=== PATIENT | female | born 1980 | race Caucasian/White ===

== ENCOUNTER → 2016-07-08 | Outpatient (CLI) | payer BC ==
--- NOTE | 2016-07-08 18:30 | US ---
July 08, [address] Lang, Thank you very much for allowing us to see your patient Priscilla Coleman. As you know, she is a 35-ye ar-old, 3, para 1011 who was asked to see us for aneuploidy screening and consult. Her history is significant for advanced maternal age (36 at EDC). She reports that she has had NIPT that was reassuring. LMP: 04/11/2016 Age by Dates: 12 weeks 3 days EDC: 01/17/2017 by LMP ULTRASOUND [place] rump length: 58 mm Gestational age by crown rump length: 12 weeks 1 day(s) TEA by crown rump length: 01/19/2017 Consistent with established dating: Yes Nuchal translucency: 1.7 mm, which is reassuring for this gestational age Nasal bone: Present heart rate: 174 bpm Placenta: posterior Right ovary visualized and appears normal. It measures 2.1 x 1.7 x 2.0 cm Left ovary not visualized. No overt structural anomalies were identified for this early ultrasound, but please note that a full anatomic evaluation has not occurred at this early gestational age. IMPRESSION: 1. Intrauterine at 12 weeks 3 days, EDC of 01/17/2017. 2. The limited anatomy appears normal. 3. The two Down syndrome markers are normal and she reports having had reassuring NIPT screening. We discussed the sensitivity and predictive values of this screening test. The only way to directly ev aluate the chromosomes is by invasive procedure such as CVS or amniocentesis. RECOMMENDATIONS: -serum AFP screening after 16 weeks to assess neural tube defect risk -detailed anatomy ultrasound at ~20 weeks -Priscilla declines invasive diagnostic testing at this time Thank you for allowing us the opportunity to evaluate your patient. Should you have any further ques tions or concerns please do not hesitate to contact me. Approximately 15 minutes were spent with the patient, of which 10 minutes were spent in [id number] consultation discussing screening and diagnosis. Neena Cagle M.D., Ph.D. Counsel Department of Obstetrics and Gynecology [facility]
--- NOTE | 2016-07-08 19:17 | US ---
First Trimester Obstetrical Sonography CLINICAL HISTORY: 35-year-old female presenting for early aneuploidy screening. TECHNIQUE: A curvilinear 5 MHz transducer was used to sonographically evaluate the fetus and the plac enta. M-mode Doppler is used. Dr. Neena Cagle is present. COMPARISON STUDY: None available. LMP: April 12, 2016, indicating an age of 12 weeks 3 days, and an estimated date of delivery of Dec. FINDINGS: There is a single viable intrauterine gestation with a crown-rump length of 58 mm, co rresponding to an age of 12 weeks 3 days. The nuchal translucency is normal, measuring 1.7 mm, and th e nasal bone is present. The heart rate is 174 bpm. The placenta is forming posteriorly, with n o focal fibroid or subchorionic hemorrhage. The maternal right ovary measures 2.0 x 1.7 x 2.1 cm, and the maternal left ovary is not identified. IMPRESSION: There is a single viable intrauterine gestation with two normal early screening markers. The patient should return at 20 weeks gestation for more complete anatomic screening and repeat biome try. Please also refer to Dr. Cagle' separate assessments and specific recommendations for follow-up.
== END ==
LOC: FIMAGING 12:48
PROVIDERS: ATTEND Obstetrics & Gynecology
DX: Z34.81 Encounter for supervision of other normal pregnancy, first trimester (principal); Z3A.12 12 weeks gestation of pregnancy

== ENCOUNTER 2017-01-18 02:55 | Inpatient (IN) | payer BC ==
[2017-01-18] MEDS ORDERED: TERBUTALINE SULFATE 1 MG/ML VIAL IV PRN (03:55)
[2017-01-18] MEDS ORDERED: EPSOM SALT 454 GM TP PRN (03:55)
[2017-01-18] MEDS ORDERED: OXYTOCIN/RINGERS LACTATE 1,000 ML IV PRN (03:55)
[2017-01-18] MEDS ORDERED: OLIVE OIL 118 ML BTL MISC PRN (03:55)
[2017-01-18] MEDS ORDERED: LIDOCAINE 1% 2 ML INJ ONE (03:58)
--- NOTE | 2017-01-18 04:25 | OBPROG ---
OBG Labor Progress Note Assessment/Plan: Assessment:contractions q 5-7 minutes feeling pain with the contractions breathing through exam 50/-2 cephalic rom clear fluid 199901/17/2017 gbs negative desires epidural for pain relief Plan:expectant management of labor 01/18/17 04:23 Subjective: Feeling pain with the contractions q5-7 minutes - SVE Dilation (cm): 2 Effacement (%): 50 Station: -2 - Physical Exam General Appearance: WD/WN, alert, no apparent distress Respiratory: chest non-tender, lungs clear, normal breath sounds Cardiac/Chest: regular rate, rhythm Abdomen: normal bowel sounds Extremities: normal range of motion, non-tender, normal inspection, Anali's sign (negative bilaterally) DTR- Lower Extremities: Knee (R): 1+, Knee (L): 1+ (no clonus bilaterally) Skin: normal color, warm/dry Neuro/Psych: no motor/sensory deficits, alert, normal mood/affect, oriented x 3 Oxytocin Orders Assessment - Pre-Induction/Augmentation Assessment Gestational Age: 40 week(s) and 1 day(s) ICD10 Worksheet Patient Problems: Problems Problem Status Onset Normal labor Acute Delivery normal Acute
[2017-01-18 04:36] LABS: % IMMATURE GRANULYOCYTES 0.4 % (0.0-1.1); ABSOLUTE IMMATURE GRANULOCYTES 0.06 10^3/uL (0.00-0.10); ADD DIFF? NO; ADD MORPH? NO; ADD SCAN? NO; ATYPICAL LYMPHOCYTE FLAG 0 (0-99); FRAGMENT RBC FLAG 0 (0-99); HEMATOCRIT 44.4 % (38.0-47.0); HEMOGLOBIN 15.3 g/dL (12.6-16.3); LEFT SHIFT FLG 0 (0-99); LIPEMIA HEMOLYSIS FLAG 90 (0-99); MEAN CELL HEMOGLOBIN 30.2 pg (27.9-34.1); MEAN CELL HEMOGLOBIN CONCENTR. 34.5 g/dL (32.4-36.7); MEAN CELL VOLUME 87.7 fL (81.5-99.8); MEAN PLATELET VOLUME 12.1 fL (8.7-11.7); PLATELET CLUMPS FLAG 10 (0-99); PLATELET COUNT 176 10^3/uL (150-400); RED BLOOD CELL COUNT 5.06 10^6/uL (4.18-5.33); RED CELL DISTRIBUTION WIDTH 13.8 % (11.5-15.2)
[2017-01-18] MEDS: LR 1,000 ML IV PRN ×2 (05:04→07:03)
--- NOTE | 2017-01-18 05:12 | OBPROG ---
OBG Labor Progress Note Assessment/Plan: Assessment:contractions q 5-7 minutes feeling pain with the contractions breathing through exam /-1 cephalic rom clear fluid 199901/17/2017 gbs negative desires epidural for pain relief return to bed after ambulating questioning category 2 tracing and possible episodic or periodic variables with contractions Plan: decrease oral intake, iv fluids , position changes in bed 01/18/17 04:23 01/18/17 05:09 Subjective: Feeling greater pain with the contractions Objective: 01/18/17 04:10 Patient ABO/Rh O NEGATIVE 01/18/17 04:10 - SVE Dilation (cm): 3 Effacement (%): 100 Station: -1 Oxytocin Orders Assessment - Pre-Induction/Augmentation Assessment Gestational Age: 40 week(s) and 1 day(s) ICD10 Worksheet Patient Problems: Problems Problem Status Onset Delivery normal Acute Normal labor Acute
--- NOTE | 2017-01-18 05:15 | GHP ---
[f rep st] HISTORY AND PHYSICAL DATE OF ADMISSION: 01/18/2017 Patient is a 36-year-old 3, para 1, with an EDC of 01/17/2017 with a gestational age of 40-1/7 weeks, who comes into Labor and Delivery at 2 a.m. with complaint of rupture of membranes at 8 o'clock on 01/17/2017, and at that time no contractions and at 1:30 a.m. stating that contractions were 5-7 minutes apart. On admit to Labor and Delivery, contractions are 5-7 minutes apart. Patient is breathing through them. Exam was / -2, cephalic posterior, soft per nurse exam. Patient has been routinely seen since early on in with [facility]. She came to the office at 9 weeks and 1 day for 1st appointment. She had an early ultrasound at 8 weeks that confirmed her due date. MEDICAL HISTORY: Has a history of anxiety and depression in high school, UTIs 02/2015; previous smoking history, discontinued in 2004. Patient is Rh negative. SURGICAL HISTORY: [place] teeth extraction in 2005, tooth implant in 2000, broken arm left x1; broken legs, right x3. GYNECOLOGICAL HISTORY: Previous OCP use. Abnormal Pap smear at age 19, negative since. PREVIOUS HISTORY: In 07/2013, a female who weighed 8 pounds 8 ounces , 39 weeks, 24 hours of labor, vaginal delivery with an epidural; patient pushed for 3 hours. In 06/2015, an SAB, no D and C needed, and then present . SOCIAL HISTORY: Patient is , 1 child at home. Previous smoker. No drug use history. Patient adopted no known family history ALLERGIES: Patient is not allergic to any medications. Has multiple food allergies MEDICATIONS: vitamins with DHA daily LABS: Patient is O negative. Antibody negative. RPR is nonreactive. Rubella is immune. Hepatitis is negative. HIV is negative. Trio screen negative. [employer] panel in 2012 was negative. AFP was negative. UA was negative. Pap: Gonorrhea and chlamydia are negative. Verifi was negative. 1- hour GTT was within normal limits. Patient is GBS negative. PHYSICAL EXAMINATION: GENERAL: Patient is awake, alert, oriented x3. LUNGS: Clear bilaterally. ABDOMEN: Bowel sounds are positive in all 4 quadrants. EXTREMITIES: DTRs are 1+ bilaterally with no clonus. Homans sign is negative bilaterally. PLAN OF CARE: 1. GBS negative. 2. Spontaneous rupture membranes at 8 p.m. on 01/17/2017. Minimal exams. Will wait 12 hours for change in cervix. 3. Epidural at patient's request. 4. continuous monitoring, low heart baseline. Occasional variable decelerations, lates 5. IV fluids /[id number]/MODL MTDD
[2017-01-18] MEDS ORDERED: D5W LR 1,000 ML IV ONE (05:23)
[2017-01-18] MEDS ORDERED: fentaNYL 2MCG/ML/BUP 0.1% RTU 100 ML BAG EP ONE (06:08)
[2017-01-18] MEDS ORDERED: BUPIVACAINE 0.25% 30 ML SDV ONE (06:09)
[2017-01-18] MEDS ORDERED: PHENYLEPHRINE HCL 100 MCG/ML SYR ONE (06:09)
[2017-01-18] MEDS ORDERED: fentaNYL 100 MCG/2 ML INJ ONE (06:10)
[2017-01-18] MEDS ORDERED: OLIVE OIL 118 ML BTL ONE (07:07)
[2017-01-18] MEDS ORDERED: LIDOCAINE 1% 300 MG/30 ML SDV ONE (07:07)
[2017-01-18] MEDS ORDERED: OXYTOCIN 10 UNIT/ML VIAL ONE (07:08)
[2017-01-18] MEDS ORDERED: TERBUTALINE SULFATE 1 MG/ML VIAL ONE (07:08)
[2017-01-18] MEDS ORDERED: MISOPROSTOL 200 MCG TAB ONE (07:08)
--- NOTE | 2017-01-18 07:08 | OBPROG ---
OBG Labor Progress Note Assessment/Plan: Assessment:contractions irregular in timing after the epidural feeling better after epidural placement denies pain exam 4/100/-1 cephalic continued clear fluid vaginally gbs negative cat 1 fhr now after 1l of fluid through iv Plan: epidural for pain relief, pitocin per protocol contractions irregular after the epidural 01/18/17 04:23 01/18/17 05:09 01/18/17 07:05 Subjective: Feeling better after the epidural Objective: 01/18/17 04:10 Patient ABO/Rh O NEGATIVE 01/18/17 04:10 - SVE Dilation (cm): 4 Effacement (%): 100 Station: -1 Oxytocin Orders Assessment - Pre-Induction/Augmentation Assessment Gestational Age: 40 week(s) and 1 day(s) ICD10 Worksheet Patient Problems: Problems Problem Status Onset Delivery normal Acute Normal labor Acute
[2017-01-18] MEDS ORDERED: OXYTOCIN/RINGERS LACTATE 500 ML IV SCH (07:30)
--- NOTE | 2017-01-18 07:33 | PREANESOB ---
Obstetric Pre-Anesthesia Info - General Info Proposed Procedure: Labor and delivery. : 3 Para: 1 WBD: 40 - Info Status: Full Term Monitors: External FHR Baseline (bpm): 125 FHR Pattern: Reassuring - Labor Status Cervical Dilation per last OB SVE: 3 Station per last OB SVE: -1 Indications for Labor Analgesia: Pain Control Labor Epidural: Proposed Anesthesia ROS: Prior epidural for labor and delivery. Prior oral surgery and tonsillectomy. Allergies/Adverse Reactions: Allergy/AdvReac Type Severity Reaction Status Date / Time No Known Allergies Allergy Verified 01/18/17 03:08 Home Medications: Medication Instructions Recorded Docosahexanoic Acid [Dha] 100 mg PO 01/18/17 Folic Acid 01/18/17 GARLIC [G[facility]LIC [facility]] 300 mg PO 01/18/17 Vit27&Calcium/Iron/FA 1 each PO DAILY 01/18/17 [ Rx 1 Tablet (RX)] Visit Medications: Generic Name Dose Route Start Last Admin Trade Name Freq PRN Reason Stop Dose Admin Lactated Ringer's 1,000 mls @ 0 mls/hr 01/18/17 03:55 01/18/17 07:03 Lr IV 07/17/17 03:54 1,000 mls PRN PRN Administration SEE PROTOCOL CONDITIONS Protocol Per Protocol Oxytocin/Lactated Ringer's 1,000 mls @ 150 mls/hr 01/18/17 03:55 Pitocin 20 Units/Lr (Premix) IV PRN PRN Post- bleeding Oxytocin/Lactated Ringer's 500 mls @ 0 mls/hr 01/18/17 07:30 Pitocin 30 Units/Lr (Premix) IV 07/17/17 07:29 CONT ELOISA Protocol Per Protocol Ibuprofen 600 mg 01/18/17 03:55 Motrin PO 07/17/17 03:54 Q6HRS PRN post , inflammation Magnesium Sulfate 454 gm 01/18/17 03:55 Epsom Salt TP 07/17/17 03:54 Q1H PRN perineal discomfort Olivet Oil 118 ml 01/18/17 03:55 Sweet Oil MISC 07/17/17 03:54 ONCE PRN preneal massage Terbutaline Sulfate 0.25 mg 01/18/17 03:55 Brethine IV 07/17/17 03:54 ONCE PRN Tachysystole Discontinued Medications Generic Name Dose Route Start Last Admin Trade Name Chaya PRN Reason Stop Dose Admin Bupivacaine HCl Confirm 01/18/17 06:09 Sensorcaine 0.25% Sdv Administered 01/18/17 06:10 Dose 30 ml .ROUTE .STK-MED ONE Fentanyl Confirm 01/18/17 06:10 Sublimaze Administered 01/18/17 06:11 Dose 100 mcg .ROUTE .STK-MED ONE Fentanyl/Bupivacaine HCl Confirm 01/18/17 06:08 Fentanyl/Bupivacaine/Ns 2 Mcg/Ml 0.1% (Premix Administered 01/18/17 06:09 Dose 100 ml EP .STK-MED ONE Dextrose/Lactated Ringer's 1,000 mls @ 999 mls/hr 01/18/17 05:23 D5w Lr IV 01/18/17 06:23 BOLUS ONE Lidocaine HCl Confirm 01/18/17 03:58 Lidocaine Hcl 1% Administered 01/18/17 03:59 Dose 2 ml .ROUTE .STK-MED ONE Lidocaine HCl Confirm 01/18/17 07:07 Lidocaine Hcl 1% Administered 01/18/17 07:08 Dose 300 mg .ROUTE .STK-MED ONE Misoprostol Confirm 01/18/17 07:08 Cytotec Administered 01/18/17 07:09 Dose 1,000 mcg .ROUTE .STK-MED ONE Olivet Oil Confirm 01/18/17 07:07 Sweet Oil Administered 01/18/17 07:08 Dose 118 ml .ROUTE .STK-MED ONE Oxytocin Confirm 01/18/17 07:08 Pitocin Administered 01/18/17 07:09 Dose 40 unit .ROUTE .STK-MED ONE Phenylephrine HCl Confirm 01/18/17 06:09 Neosynephrine Administered 01/18/17 06:10 Dose 1,000 mcg .ROUTE .STK-MED ONE Terbutaline Sulfate Confirm 01/18/17 07:08 Brethine Administered 01/18/17 07:09 Dose 1 mg .ROUTE .STK-MED ONE - Anesthesia History Response to Local Anesthetics: Normal Anesthesia & Operative History: No Prior Problems Family Anesthesia History: Negative - Social History Substance Use/Abuse: Denies - Focused Exam Blood Pressure: 113/72 Heart Rate: 78 Height/Weight (Nursing): Height 177.8 cm Weight 79.832 kg Physical Exam: Within normal limits. ASA Status: II Labs: 01/18/17 04:10 Patient ABO/Rh O NEGATIVE 01/18/17 04:10 - Plan Anesthetic Plan: CSE Consent Signed and on Chart: Yes Patient/Guardian Understands and Agrees to Plan: Yes Urgent/Emergent Case: Angela manriquez completed preop but documented later for safe timely pt care
[2017-01-18] MEDS ORDERED: ONDANSETRON 4 MG/2 ML VIAL IVP PRN (07:35)
[2017-01-18] MEDS ORDERED: PHENYLEPHRINE HCL 100 MCG/ML SYR IVP PRN (07:35)
--- NOTE | 2017-01-18 07:35 | POSTANESTH ---
Post Anesthetic Evaluation Cardiovascular Status: Normal, Stable Respiratory Status: Normal, Stable, Similar to Pre-op Cond. Level of Consciousness/Mental Status: Can Participate in Eval, Alert and Oriented Pain Control: Adequate, Prn Tx Ordered Nausea/Vomiting Control: Adequate, Prn Tx Ordered Complications Possibly Related to Anesthesia: None Noted
[2017-01-18] MEDS ORDERED: fentaNYL 2MCG/ML/BUP 0.1% RTU 100 ML EP SCH (08:00)
[2017-01-18] MEDS ORDERED: LR 500 ML IV SCH (08:00)
--- NOTE | 2017-01-18 08:36 | OBPROG ---
OBG Labor Progress Note Assessment/Plan: Assessment: 36 y/o @ 40 1/7 wks with SROM Plan: FHTs - Cat II tracing with intermittent variable decels with js 80-90 bpm as well as prolonged decel x 5 min with js 60 bpm; resuscitation performed -pt on all fours, IVFs wide open and oxygen applied with slow return to baseline. BP noted to be low 100/50's and Ephedrine given x 1. Ctx's are difficult to trace but at time of decel noted to have 3 long ctx's. FHTs now reassuring with + accels, moderate variability Will cont to closely monitor strip SVE 5/90/0 s/p epidural, pt is comfortable 01/18/17 08:36 Subjective: Pt is comfortable, s/p epidural. Pt states she did feel lots of FM. Objective: 01/18/17 04:10 Patient ABO/Rh O NEGATIVE 01/18/17 04:10 Temp Pulse Resp BP Pulse Ox 78 113/72 01/18/17 07:34 01/18/17 07:34 - SVE Dilation (cm): 5 Effacement (%): 90 Station: 0 Donis Current Contraction Pattern: Irregular FHR (bpm): 120 FHR Pattern Variability: Moderate FHR Category: 2 (Intermittent variable decels with js 80-90 bpm. Prolonged decel x 5 min with js to 60 bpm) Membranes: SROM Amniotic Fluid Color: Clear Oxytocin Orders Assessment - Pre-Induction/Augmentation Assessment Gestational Age: 40 week(s) and 1 day(s) ICD10 Worksheet Patient Problems: Problems Problem Status Onset Delivery normal Acute Normal labor Acute
--- NOTE | 2017-01-18 10:17 | SOAPPROG ---
SOAP Progress Note Assessment/Plan: Assessment: Plan: 01/18/17 10:16 Asked by OB physician to remain in house at 10:12 hours due to concerns about Fetus. In house services provided as requested. Objective: Vital Signs Temp Pulse Resp BP Pulse Ox 78 113/72 01/18/17 07:34 01/18/17 07:34 Laboratory Results 01/18/17 04:10 ICD10 Worksheet Patient Problems: Problems Problem Status Onset Delivery normal Acute Normal labor Acute
[2017-01-18 13:18] LABS: BASE EXCESS CORD -10.3 mEq/L (-13.6--3.2); CORD BLOOD PCO2 64.7 mmHg (37-60); PH ARTERIAL CORD BLOOD 7.13 (7.10-7.37)
[2017-01-18 13:23] LABS: PH VENOUS CORD BLOOD 7.3 (7.20-7.42)
[2017-01-18] MEDS ORDERED: SIMETHICONE 80 MG TAB CHEW PO PRN (13:28)
[2017-01-18] MEDS ORDERED: HYDROCORTISONE 0.5% CREAM TP PRN (13:28)
--- NOTE | 2017-01-18 13:33 | OBDEL ---
Info Type: Vaginal GBS+: No Indications for Delivery: SROM Vaginal Delivery - Labor and Delivery Onset of Contractions Date: 01/17/17 Onset of Contractions Time: 20:30 Onset of Contractions Type: Augmented Rupture of Membranes Date: 01/17/17 Rupture of Membranes Time: 19:30 Rupture of Membranes Type: Spontaneous Amniotic Fluid Color: Clear Dilation Complete Date: 01/18/17 Dilation Complete Time: 12:30 Placenta Delivery Date: 01/18/17 Placenta Delivery Time: 13:10 Total Hours of Labor: 16 Non-surgical Procedures: IUPC Laceration: 2nd Degree Repair: 3-0, Vicryl Vaginal Sponge Count Correct: Yes Vaginal Needle Count Correct: Yes Vaginal Sweep Performed: Yes EBL: 350cc Delivery Events: None Delivery Comment: heart tones were in 50-60's and vacuum was applied at 1244 x 1 min during one contraction with a pop-off and never reapplied. Cord Gases: Cord Gases Cord Blood PCO2 64.7 mmHg (37-60) H 01/18/17 13:02 Cord Base Excess -10.3 mEq/L (-13.6--3.2) 01/18/17 13:02 Cord ABG pH 7.13 (7.10-7.37) 01/18/17 13:02 Cord VBG pH 7.30 (7.20-7.42) 01/18/17 13:02 - Medications Labor Augmentation/Induction Methods Used: Pitocin Labor Augmentation/Induction Indication: Other (Specify) (ctx's spaced out) Operative Report - Delivery Cord Gases: Cord Gases Cord Blood PCO2 64.7 mmHg (37-60) H 01/18/17 13:02 Cord Base Excess -10.3 mEq/L (-13.6--3.2) 01/18/17 13:02 Cord ABG pH 7.13 (7.10-7.37) 01/18/17 13:02 Cord VBG pH 7.30 (7.20-7.42) 01/18/17 13:02 Assissted Delivery Assisted Delivery Type: Vacuum (Kiwi) Station: +3 Pop offs (Total): 1 Pulls (Total): 1 Assisted Delivery Comment: heart tones were in 50-60's and vacuum was applied at 1244 x 1 min during one contraction with a pop-off and never reapplied. Data Donis Delivery Date: 01/18/17 Delivery Time: 13:02 TEA: 01/17/17 Gestational Age: 40 week(s) and 1 day(s) Sex of : Male (Neo Valentin) Score (1 Min): 8 Score (5 Min): 9 ICD10 Worksheet Patient Problems: Problems Problem Status Onset Delivery normal Acute Normal labor Acute
[2017-01-18] MEDS: IBUPROFEN 600 MG TAB PO PRN ×2 (13:36→19:23)
[2017-01-18] MEDS: HYDROCODONE/APAP 5/325 TAB PO PRN (21:42)
[2017-01-19] MEDS: IBUPROFEN 600 MG TAB PO PRN ×4 (02:06→23:40)
[2017-01-19] MEDS: HYDROCODONE/APAP 5/325 TAB PO PRN ×4 (04:43→19:26)
[2017-01-19] MEDS: DOCUSATE SODIUM 100 MG CAP PO PRN ×2 (08:20→19:26)
--- NOTE | 2017-01-19 15:19 | OBPP ---
Progress Note Assessment/Plan: Assessment: PPD# 1 s/p breast feeding Plan: routine post care 01/19/17 15:17 Subjective: patient is doing well. pain is well controlled. normal lochia. denies headache and changes in vision. breast feeding is going well. has intense cramping with breast feeding which is controlled with ibuprofen and norco. Objective: 01/18/17 04:10 Patient ABO/Rh O NEGATIVE 01/18/17 04:10 Temp Pulse Resp BP Pulse Ox 36.7 C 91 16 104/70 95 01/19/17 08:00 01/19/17 08:00 01/19/17 08:00 01/19/17 08:00 01/19/17 08:00 Physical Exam - Physical Exam General Appearance: WD/WN, alert, no apparent distress Respiratory: chest non-tender, lungs clear, normal breath sounds Cardiac/Chest: normal peripheral pulses, regular rate, rhythm Abdomen: normal bowel sounds, hypoactive bowel sounds, non-tender, other ( Incision clean dry and intact) Extremities: normal range of motion, non-tender, normal inspection, normal capillary refill Skin: normal color, warm/dry Neuro/Psych: no motor/sensory deficits, alert, normal mood/affect, oriented x 3
[2017-01-20] MEDS ORDERED: SUCROSE 1 EA UDL ONE (05:35)
[2017-01-20] MEDS: IBUPROFEN 600 MG TAB PO PRN ×2 (06:11→12:24)
[2017-01-20] MEDS: HYDROCODONE/APAP 5/325 TAB PO PRN (06:11)
--- NOTE | 2017-01-20 08:50 | OBPP ---
Progress Note Assessment/Plan: Assessment:nipples intact vs wnl pain well managed with assistance ff@u scant rubra lochia perineum approximated Plan: discharge to home with instructions depression, pain management, pelvic rest, pericare, bleeding, clots, infection, rest, contraceptive, , pain management, continuing pnv verbalized understanding of all of the ablove 01/18/17 04:23 01/18/17 05:09 01/18/17 07:05 01/20/17 08:46 Subjective: Doing well. Pain that is controlled with norco and ibuprofen. with some difficulty. Baby under lights Objective: 01/18/17 04:10 Patient ABO/Rh O NEGATIVE 01/18/17 04:10 Temp Pulse Resp BP Pulse Ox 36.7 C 91 16 104/70 95 01/19/17 08:00 01/19/17 08:00 01/19/17 08:00 01/19/17 08:00 01/19/17 08:00 Uterine Position/Fundal Height: At Umbilicus Uterine Tone: Firm Physical Exam - Physical Exam General Appearance: WD/WN, alert, no apparent distress Extremities: normal range of motion, Anali's sign (negative bilaterally)
[2017-01-20 09:53] VITALS: BP 110/69; PULSE 72; RESP 18; TEMP 98; O2SAT 96
[2017-01-20] MEDS: DOCUSATE SODIUM 100 MG CAP PO PRN (12:24)
== END 2017-01-20 14:47 | disposition home or self-care (01) | DRG 775 ==
LOC: OBSVTOIN 02:55 → FLD 02:55 → FOB 17:00
PROVIDERS: ADMIT Advanced Practice Midwife; ATTEND Advanced Practice Midwife
PROC: 10D07Z6 Extraction of Products of Conception, Vacuum, Via Natural or Artificial Opening (ICD-10-PCS; principal; 2017-01-18)
PROC: 0KQM0ZZ Repair Perineum Muscle, Open Approach (ICD-10-PCS; principal; 2017-01-18)
DX: O70.1 Second degree perineal laceration during delivery (principal); Z37.0 Single live birth; Z3A.40 40 weeks gestation of pregnancy
CPT/HCPCS: J2370; J2590; J3010; J3105